=== PATIENT | male | born 1960 | race Caucasian/White ===

== ENCOUNTER 2018-05-31 18:45 | Inpatient (IN) ==
[2018-05-31] MEDS ORDERED: Diphtheria/Tetanus/Pertussis Vaccine Inj 0.5 ML Syringe IM ONE (19:18)
[2018-05-31] MEDS ORDERED: fentaNYL Citrate Inj 100 MCG/2 ML Ampul ONE (19:18)
[2018-05-31] MEDS ORDERED: ceFAZolin 2 GM Premix Inj 2 GM/50 ML PIGGYBACK IV.SIG ONE (19:18)
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
[2018-05-31 19:50] LABS: Baso # (Auto) 0.1 th/mm3 (0.0-0.2); Baso % (Auto) 0.6 % (0.0-2.0); Eos # (Auto) 0.3 th/mm3 (0.0-0.4); Eos % (Auto) 4.1 % (0.0-4.0); Hematocrit 44.5 % (39.0-51.0); Hemoglobin 15.9 gm/dL (13.0-17.0); Lymph # (Auto) 2.8 th/mm3 (1.0-4.8); Lymph % (Auto) 35.4 % (9.0-44.0); Mean Corpuscular HGB Conc 35.7 % (32.0-36.0); Mean Corpuscular Hemoglobin 34.1 pg (27.0-34.0); Mean Corpuscular Volume 95.4 fL (80.0-100.0); Mean Platelet Volume 9.5 fL (7.0-11.0); Mono # (Auto) 0.8 th/mm3 (0.0-0.9); Mono % (Auto) 10.4 % (0.0-8.0); Neut # (Auto) 3.9 th/mm3 (1.8-7.7); Neut % (Auto) 49.5 % (16.0-70.0); Platelet Count 164 th/mm3 (150-450); Red Blood Count 4.66 mil/mm3 (4.50-5.90); Red Cell Distribution Width 12.4 % (11.6-17.2); White Blood Count 7.9 th/mm3 (4.0-11.0)
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
[2018-05-31 20:01] LABS: Activated Partial Thrombo Time 23.1 sec (24.3-30.1); INR 1.1 Ratio; Prothrombin Time 10.7 sec (9.8-11.6)
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
[2018-05-31] MEDS ORDERED: Acetaminophen 325 MG Tablet PO PRN (20:03)
[2018-05-31] MEDS ORDERED: Bisacodyl 10 MG Supp RECTAL PRN (20:03)
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
[2018-05-31] MEDS: Sod Chloride 0.9% Inj 1,000 ML IV.CONT SCH (21:14)
[2018-05-31] MEDS: Famotidine 20 MG Tablet PO SCH (21:15)
[2018-05-31] MEDS: Senna/Docusate Sodium 8.6/50 MG Tablet PO SCH (21:15)
[2018-05-31] MEDS ORDERED: levETIRAcetam 1000mg/100mL Inj 100 ML IV.SIG SCH (22:00)
[2018-06-01] MEDS ORDERED: Chlorhexidine Gluconate 2% 1 Pack (2 Cloths) TOPICAL PRN (04:00)
[2018-06-01 04:40] LABS: Baso % (Auto) 0.3 % (0.0-2.0); Eos % (Auto) 0.1 % (0.0-4.0); Hematocrit 37.9 % (39.0-51.0); Hemoglobin 13.3 gm/dL (13.0-17.0); Lymph # (Auto) 1.1 th/mm3 (1.0-4.8); Lymph % (Auto) 7.8 % (9.0-44.0); Mean Corpuscular HGB Conc 35.1 % (32.0-36.0); Mean Corpuscular Hemoglobin 34.1 pg (27.0-34.0); Mean Corpuscular Volume 97.1 fL (80.0-100.0); Mean Platelet Volume 9.9 fL (7.0-11.0); Mono # (Auto) 0.9 th/mm3 (0.0-0.9); Mono % (Auto) 6.1 % (0.0-8.0); Neut # (Auto) 12.3 th/mm3 (1.8-7.7); Neut % (Auto) 85.7 % (16.0-70.0); Platelet Count 175 th/mm3 (150-450); Red Blood Count 3.91 mil/mm3 (4.50-5.90); Red Cell Distribution Width 12.5 % (11.6-17.2); White Blood Count 14.4 th/mm3 (4.0-11.0)
[2018-06-01 05:01] LABS: Calcium 7.8 mg/dL (8.5-10.1); Carbon Dioxide 27.9 meq/L (21.0-32.0); Potassium 4.3 meq/L (3.5-5.1)
--- NOTE | 2018-06-01 05:20 | CT ---
EXAM DATE: 06/01/2018 5:14 AM EDT AGE/SEX: 57 years / Male INDICATIONS: Follow up intracerebral hemorrhage. CLINICAL DATA: This is the patient's subsequent encounter. Patient reports that signs and symptoms h ave been present for 1 day and indicates a pain score of 2/10. MEDICAL/SURGICAL HISTORY: Hypertension. None. RADIATION DOSE: 42.97 CTDI (mGy) COMPARISON: [facility] [place], CT HEAD W/O CONTRAST, 05/31/2018. . TECHNIQUE: CT of the head without contrast. Using automated exposure control and adjustment of the mA and/or kV according to patient size, radiation dose was kept as low as reasonably achievable to ob tain optimal diagnostic quality images. DICOM format image data is available electronically for revi ew and comparison. FINDINGS: Cerebrum: The ventricles are normal for age. No evidence of midline shift, mass lesion, new hemorrh age or acute infarction. The extra-axial hyperdense hemorrhage in the anterior right middle cranial f scooby is stable in size and appearance, measuring 1.3 cm in AP dimension.. Posterior Fossa: The cerebellum and brainstem are intact. The 4th ventricle is midline. The cerebe llopontine angle is unremarkable. Extracranial: The visualized portion of the orbits is intact. Stable opacification right sphenoid si nus and multiple bilateral ethmoid air cells. Skull: The calvaria is intact. No evidence of skull fracture. CONCLUSION: 1. Stable right extra-axial cranial fossa hematoma. 2. No new intracranial findings. . Electronically signed by: Darwin Choi MD 06/01/2018 5:19 AM EDT
[2018-06-01] MEDS: Chlorhexidine Gluconate 2% 1 Pack (2 Cloths) TOPICAL SCH (05:37)
[2018-06-01] MEDS ORDERED: Dextrose 50% in Water 50 ML Vial IV.PUSH PRN (06:55)
[2018-06-01] MEDS: Famotidine 20 MG Tablet PO SCH ×2 (08:40→20:21)
[2018-06-01] MEDS: Senna/Docusate Sodium 8.6/50 MG Tablet PO SCH ×2 (08:41→20:21)
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
[2018-06-01] MEDS: Insulin NovoLIN Regular Correctional Sugar Inj SQ SCH ×4 (11:34→21:53)
[2018-06-01] MEDS: Sod Chloride 0.9% Inj 1,000 ML IV.CONT SCH (11:38)
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
[2018-06-01 16:06] LABS: Hemoglobin A1c 8.2 % (4.3-6.0)
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
[2018-06-02 04:24] LABS: Baso % (Auto) 0.5 % (0.0-2.0); Eos # (Auto) 0.3 th/mm3 (0.0-0.4); Eos % (Auto) 3.3 % (0.0-4.0); Hematocrit 30.7 % (39.0-51.0); Hemoglobin 11.1 gm/dL (13.0-17.0); Lymph # (Auto) 1.9 th/mm3 (1.0-4.8); Lymph % (Auto) 22.3 % (9.0-44.0); Mean Corpuscular Hemoglobin 35.3 pg (27.0-34.0); Mean Corpuscular Volume 98.1 fL (80.0-100.0); Mean Platelet Volume 8.9 fL (7.0-11.0); Mono # (Auto) 0.8 th/mm3 (0.0-0.9); Mono % (Auto) 9.9 % (0.0-8.0); Neut # (Auto) 5.5 th/mm3 (1.8-7.7); Platelet Count 126 th/mm3 (150-450); Red Blood Count 3.13 mil/mm3 (4.50-5.90); Red Cell Distribution Width 12.2 % (11.6-17.2); White Blood Count 8.6 th/mm3 (4.0-11.0)
[2018-06-02 04:42] LABS: Anion Gap 7 meq/L (5-15); Blood Urea Nitrogen 8 mg/dL (7-18); Calcium 7.6 mg/dL (8.5-10.1); Carbon Dioxide 27.4 meq/L (21.0-32.0); Chloride 109 meq/L (98-107); Glomerular Filtration Rate Greater Than 89 mL/min (>89); Glucose,Random 191 mg/dL (74-106); Potassium 3.7 meq/L (3.5-5.1); Sodium 143 meq/L (136-145)
[2018-06-02] MEDS: Sod Chloride 0.9% Inj 1,000 ML IV.CONT SCH ×2 (05:25→07:53)
[2018-06-02 05:26] LABS: Platelet Morphology Normal (Normal)
[2018-06-02] MEDS: Chlorhexidine Gluconate 2% 1 Pack (2 Cloths) TOPICAL SCH (05:26)
[2018-06-02] MEDS: Insulin NovoLIN Regular Correctional Sugar Inj SQ SCH ×4 (07:52→20:19)
[2018-06-02] MEDS: Famotidine 20 MG Tablet PO SCH ×2 (08:53→20:10)
[2018-06-02] MEDS: Senna/Docusate Sodium 8.6/50 MG Tablet PO SCH ×2 (08:53→20:10)
[2018-06-02] MEDS ORDERED: Morphine Inj 4 MG/ML Vial IV.PUSH PRN (09:24)
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
[2018-06-02] MEDS: diazePAM 2 MG Tablet PO SCH ×2 (14:41→23:13)
--- NOTE | 2018-06-02 16:51 | P.PNNS ---
Subjective Interval history: Mild headache. No nausea or vomiting. Tolerating diet. Complains of increased right shoulder pain following the recent trauma. He does have a history of right shoulder problems with previous rotator cuff repair. Physical Exam Vital signs: Vital Signs 06/01/18 20:00 06/02/18 00:00 06/02/18 04:00 Temperature 98.8 F 98.8 F 98.4 F Pulse Rate 93 H 86 78 Respiratory Rate 12 15 13 Blood Pressure 132/68 152/77 H 148/78 H Pulse Oximetry 94 L 95 93 L 06/02/18 08:00 06/02/18 09:00 06/02/18 12:00 Temperature 98.4 F 98.1 F Pulse Rate 78 77 77 Respiratory Rate 16 18 Blood Pressure 174/75 H 158/92 H Pulse Oximetry 94 L 96 06/02/18 13:53 Temperature Pulse Rate Respiratory Rate Blood Pressure Pulse Oximetry 96 Intake & Output 06/01/18 06/02/18 06/02/18 18:59 06:59 18:59 Intake Total 1925 / 1925 1105 / 1105 1105 / 1105 Output Total 600 / 600 750 / 750 Balance 1325 / 1325 355 / 355 1105 / 1105 Weight 104.1 kg Intake: IV 1205 / 1205 1105 / 1105 1105 / 1105 NS Inj 1,000 ML @ 84 mls/hr IV. 1000 / 1000 1000 / 1000 1000 / 1000 CONT .[id number] [facility] Rx#:[id number] Keppra 1000 mg/100 mL Premix 100 / 100 100 ML @ 400 mls/hr IV.SIG NOW [facility] Rx#:[id number] Keppra Inj 500 MG In NS Inj 100 105 / 105 105 / 105 105 / 105 ML @ 420 mls/hr IV.SIG Q12H [facility] Rx#:[id number] Oral 720 / 720 Output: Urine 600 / 600 750 / 750 Narrative: GENERAL: Awake & alert in bed eating breakfast. Affect normal. Readily interacts. No apparent distress. SKIN: Right facial and forehead abrasions, left forehead abrasion. Right forearm abrasion. Right lateral thigh ecchymosis HEENT: Right frontoparietal scalp contusion, right side facial & forehead abrasions, left forehead abrasion. PERRLA 3 mm brisk, EOMI. No otorrhea or rhinorrhea, dried blood around the nares. MMM & pink, uvula midline, tongue midline to protrusion. NECK: [place] J cervical collar in place. No midline cervical spine TTP. With flexion the patient did have midline pain, therefore the cervical collar was replaced. Neck supple. No JVD. Trachea midline. MUSCULOSKELETAL: Moves all extremities spontaneously & purposefully. TTP of the right shoulder and the right lateral hip/thigh. Right forearm abrasion. Right lateral thigh ecchymosis. Decreased ROM to right shoulder. No clubbing or deformity. NEUROLOGICAL: AAOx3. Speech clear & appropriate, normal rate. Follows simple commands w/o difficulty. CN II through XII appear fully tested and intact. PERRLA 3 mm brisk, EOMI. Tongue midline to protrusion. Sensation intact to light touch to all extremities. Strength is normal to all major flexion & extension muscle groups of the extremities. Assessment and Plan - Plan Impression: 1. Moderate right and very small left anterior middle fossa extra-axial hematoma, epidural versus subdural. Both are relatively focal without significant mass-effect. Questionable small right temporal bone fracture. 2. Right scalp contusion 3. Right facial abrasions Patient doing fairly well. Neurologically intact w/improved mental status. Pain to posterior neck w/flexion, unable to clinically clear cervical spine. Past 24 hrs: Afebrile. Hypertensive yesterday evening. Intermittent tachypnea. Reviewed labs for today. Leukocytosis most likely reactionary to trauma. Sodium 140. eGFR 78. CT brain : CONCLUSION: 1. Stable right extra-axial cranial fossa hematoma. 2. No new intracranial findings. "05/31/2018 CT scan head images reviewed by the undersigned with the patient in the emergency room. The study reveals a moderate approximately 14 x 28 mm maximum dimension extra-axial hematoma at the anterior right middle fossa causing focal compression on the right temporal lobe. There is a questionable focal hairline fracture of the right temporal bone in the area of the hematoma. There is also noted to be a small left anterior middle fossa hematoma measuring less than 3 mm maximum thickness. No significant pneumocephalus or hydrocephalus noted. 05/31/2018 CT scan cervical spine images are reviewed. The study reveals anterior and posterior osteophyte formation at the C6-7 level with relatively good preservation of intervertebral disk space heights at all cervical levels. No evidence of acute fracture or subluxation is significant canal or foraminal compromise." - Dr Kern at 2042. Plan: Discussed with patient and family in the room on 06/02/2018 Primary & critical care management per Trauma. No indication for neurosurgical intervention at this time. Neuro checks. Stat CT brain for any decline in mental status. Hold pharmacologic DVT prophylaxis. Mechanical DVT prophylaxis. No seizure prophylaxis indicated at this time. Mobilize patient w/assistance as needed. Physical & Occupational Therapy eval & tx. Patient may be transferred to a regular med/surg floor from Neurosurgery's perspective. Patient cervical spine MRI with possible mild acute annular tear, mild anterior listhesis C5-6 with questionable abnormal signal intensity in the superior left C6 facet. Flexion-extension films. Neck discomfort quite a bit better today compared to 06/01/2018.
--- NOTE | 2018-06-03 06:26 | P.DCO ---
Addendum entered and electronically signed by ZEYNEP Little 06:33: No Lisinopril education needed Original Note: - Physical Therapy Order: Evaluate and treat, Improve ambulation, Strength and gait training - Home Health Nursing Order: Medical education, Signs/symptoms of disease process, Diabetic education , Medication education-adverse effect, Nursing assessment with vital signs Instructions: Metformin and Lisinopril medication eduction - Certification I have seen patient Elías Hannah on 06/03/18. My clinical findings support the need for the requested home health care services because: Deconditioned with increased weakness, Limited ability to care for self I certify that my clinical findings support that this patient is homebound because: Impaired cognitive ability/safety
[2018-06-03] MEDS: diazePAM 2 MG Tablet PO SCH ×2 (06:35→17:07)
[2018-06-03] MEDS: Chlorhexidine Gluconate 2% 1 Pack (2 Cloths) TOPICAL SCH (06:36)
[2018-06-03] MEDS: Famotidine 20 MG Tablet PO SCH (08:22)
[2018-06-03] MEDS: Senna/Docusate Sodium 8.6/50 MG Tablet PO SCH (08:23)
[2018-06-03] MEDS ORDERED: levETIRAcetam 500 MG Tablet PO SCH (09:00)
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
--- NOTE | 2018-06-03 23:59 | P.PNNS ---
Physical Exam Vital signs: Vital Signs 06/03/18 00:00 06/03/18 04:00 06/03/18 06:35 Temperature 98.7 F 98.1 F Pulse Rate 76 77 71 Respiratory Rate 20 18 Blood Pressure 171/74 H 180/83 H 155/78 H Pulse Oximetry 92 L 90 L 06/03/18 08:00 06/03/18 12:00 Temperature 98.2 F 98.3 F Pulse Rate 70 71 Respiratory Rate 20 20 Blood Pressure 149/73 H 138/71 Pulse Oximetry 92 L 93 L Intake & Output 06/03/18 06/03/18 06/04/18 06:59 18:59 06:59 Output Total 1200 / 1200 750 / 750 Balance -1200 / -1200 -750 / -750 Weight 103.5 kg Output: Urine 1200 / 1200 750 / 750 Assessment and Plan - Plan Impression: 1. Moderate right and very small left anterior middle fossa extra-axial hematoma, epidural versus subdural. Both are relatively focal without significant mass-effect. Questionable small right temporal bone fracture. 2. Right scalp contusion 3. Right facial abrasions Patient doing fairly well. Neurologically intact w/improved mental status. Pain to posterior neck w/flexion, unable to clinically clear cervical spine. Past 24 hrs: Afebrile. Hypertensive yesterday evening. Intermittent tachypnea. Reviewed labs for today. Leukocytosis most likely reactionary to trauma. Sodium 140. eGFR 78. CT brain : CONCLUSION: 1. Stable right extra-axial cranial fossa hematoma. 2. No new intracranial findings. "05/31/2018 CT scan head images reviewed by the undersigned with the patient in the emergency room. The study reveals a moderate approximately 14 x 28 mm maximum dimension extra-axial hematoma at the anterior right middle fossa causing focal compression on the right temporal lobe. There is a questionable focal hairline fracture of the right temporal bone in the area of the hematoma. There is also noted to be a small left anterior middle fossa hematoma measuring less than 3 mm maximum thickness. No significant pneumocephalus or hydrocephalus noted. 05/31/2018 CT scan cervical spine images are reviewed. The study reveals anterior and posterior osteophyte formation at the C6-7 level with relatively good preservation of intervertebral disk space heights at all cervical levels. No evidence of acute fracture or subluxation is significant canal or foraminal compromise." - Dr Kern at 2042. Plan: Discussed with patient and family in the room on 06/02/2018 Primary & critical care management per Trauma. No indication for neurosurgical intervention at this time. Neuro checks. Stat CT brain for any decline in mental status. Hold pharmacologic DVT prophylaxis. Mechanical DVT prophylaxis. No seizure prophylaxis indicated at this time. Mobilize patient w/assistance as needed. Physical & Occupational Therapy eval & tx. Patient may be transferred to a regular med/surg floor from Neurosurgery's perspective. Patient cervical spine MRI with possible mild acute annular tear, mild anterior listhesis C5-6 with questionable abnormal signal intensity in the superior left C6 facet. Flexion-extension films. Neck discomfort quite a bit better today compared to 06/01/2018.
== END 2018-06-03 17:30 | disposition home health service (06) ==
LOC: NEPE 18:45 → NEDA 19:58 → N03 20:15 → N05 06-02 20:49
PROVIDERS: ADMIT Surgery; ATTEND Surgery